=== PATIENT | female | born 1955 | race Caucasian/White ===

== ENCOUNTER → 2016-09-15 | Outpatient (CLI) | payer OTHER | LOC: CIMAGING 15:34 | PROVIDERS: ATTEND Podiatrist | DX: S92.514A Nondisplaced fracture of proximal phalanx of right lesser toe(s), initial encounter for closed fracture (principal) | CPT/HCPCS: 73630-PO ==

== ENCOUNTER → 2016-10-26 | Outpatient (CLI) | payer OTHER | LOC: CIMAGING 15:12 | PROVIDERS: ATTEND Podiatrist | DX: S92.514D Nondisplaced fracture of proximal phalanx of right lesser toe(s), subsequent encounter for fracture with routine healing (principal) | CPT/HCPCS: 73630-PO ==

== ENCOUNTER 2017-08-16 12:00 | Day surgery (SDC) | payer BC, OTHER ==
--- NOTE | 2017-08-13 09:23 | PDGENHP ---
History and Physical History and Physical: Assessment and Plan: 1. Post-menopausal bleeding Elizabeth has post menopausal bleeding likely from submucous polyps. We discussed that the endometrial biopsy, although reasurring, could biss an plyp. Therefore , it is recommended that she undergo an hysteroscopy with curretage. She is agreeable. 2. Endometrial polyp Subjective: Patient ID: Elizabeth Hardin is a 61 y.o. female who [facility] to [facility] for post menopausal bleeding. HPI Elizabeth was kindly referred by Megan Lares for post menopausal bleeding. This has occurred off and on for several months. They have changed her HRT but bleeding has recurred. She saw Megan who performed a pelvic ultrasound which was thickened and irregular which was concerning for polyps. Megan performed an endometrial biopsy was returned atrophic. Therefore she is referred for surgical consultation. She otherwise is asymptomatic. PastMedicalHistory Past Medical History: Diagnosis Date Hyperlipidemia Thyroid disease PastSurgicalHistory No past surgical history on file. CURRENT MEDICATIONS: Current Outpatient Prescriptions Medication Sig aspirin 81 mg EC tablet Take 81 mg by mouth daily. atorvaSTATin (LIPITOR) 40 mg tablet Take 40 mg by mouth daily. COMPOUNDED PRODUCT Product Name: Hormone Replacement Therapy Components/Strengths: Estrogen/Progesterone/Testosterone Directions: THYROID,PORK (ARMOUR THYROID PO) Take 75 mg by mouth daily. No current facility-administered medications for this visit. ALLERGIES: Dallergy [chlorpheniramine-phenylephrine] I have reviewed, verified and agree with the past medical, surgical, , family, social and ROS history as documented by the RN today. Objective: Vital Signs: Visit Vitals BP 126/70 Pulse 67 Temp 36.7 C (98.1 F) (Temporal Artery) Resp 12 Ht 1.626 m (5' 4") Wt 65.8 kg (145 lb) SpO2 97% BMI 24.89 kg/m Physical Exam Gen: This is an alert, well developed woman in no distress. Neuro: She moves all extremities. Psych: She is appropriate, oriented, with normal affect. Neck: No thyroid enlargement, adenopathy, or tenderness. Lungs: Clear to ascultation, no wheezes or rales. Heart: Regular rate and rhythm without obvious murmurs. Abdomen: Soft, non-tender, without guarding, rebound, or masses. Extremities: No edema or cyanosis. Pelvic: Normal external genitalia. Non-gaping introitus, vagina without discharge, adequately estrogenized, no significant prolapse. Cervix without lesions or discharge. Uterus normal sized, mobile, non-tender. Adnexa non- tender without enlargement. A pelvic ultrasound today show an endometrium measuring 1.5 x 0.8 cm suggestive of a polyp. DATA: I have reviewed the pertinent medical records. TIME/COMMUNICATION: I personally spent a total of 35 minutes. Of that 20 minutes was counseling/ coordination of patient's care. See my note above for details. Abner Castaneda MD Board Certified Female Pelvic Medicine and Reconstructive Surgery Director of Minimally Invasive Gynecologic Surgery, [facility] Surgeon in Minimally Invasive Gynecologic Surgery [facility] Surgeon in Robotic Surgery
[2017-08-16] MEDS ORDERED: BUPIVACAINE/EPI 0.5% 30 ML SDV ONE (12:04)
[2017-08-16] MEDS ORDERED: LIDOCAINE 1% 2 ML INJ ID PRN (12:08)
[2017-08-16] MEDS ORDERED: LR 1,000 ML IV ONE (12:08)
--- NOTE | 2017-08-16 12:18 | PDHPUP ---
History & Physical Update H&P update statement: This history and physical update is based on an assessment of the patient which was completed after admission or registration (within 24 hours), but prior to the surgery/procedure. H&P update: H&P reviewed & patient examined, no change in patient's condition since H&P completed
[2017-08-16] MEDS ORDERED: MIDAZOLAM 2 MG/2 ML VIAL ONE (12:36)
[2017-08-16] MEDS ORDERED: PROPOFOL 200 MG/20 ML VIAL ONE ×2 (12:39)
[2017-08-16] MEDS ORDERED: fentaNYL 100 MCG/2 ML INJ ONE (12:39)
[2017-08-16] MEDS ORDERED: LIDOCAINE 2% 5 ML SDV ONE (12:43)
[2017-08-16] MEDS ORDERED: ONDANSETRON 4 MG/2 ML VIAL IVP PRN (12:52)
[2017-08-16] MEDS ORDERED: NALOXONE HCL 0.4 MG/ML INJ IVP PRN (12:52)
[2017-08-16] MEDS ORDERED: ALBUTEROL 3 ML DEYVIAL IH PRN (12:52)
[2017-08-16] MEDS ORDERED: DEXAMETHASONE 4 MG/ML VIAL IVP PRN (12:52)
[2017-08-16] MEDS ORDERED: LR 500 ML IV PRN (12:52)
[2017-08-16] MEDS ORDERED: ACETAMINOPHEN 500 MG TAB PO PRN (12:52)
[2017-08-16] MEDS ORDERED: HYDROCODONE/APAP 5/325 TAB PO PRN (12:52)
[2017-08-16] MEDS ORDERED: fentaNYL 100 MCG/2 ML INJ IVP PRN (12:52)
--- NOTE | 2017-08-16 12:52 | PDANEPAE ---
ANE Past Medical History - Cardiovascular History Hx Hypertension: No Hx Arrhythmias: No Hx Chest Pain: No Hx Coronary Artery / Peripheral Vascular Disease: Yes Hx CHF / Valvular Disease: No Hx Palpitations: No Cardiovascular History Comment: high chol - Pulmonary History Hx COPD: No Hx Asthma/Reactive Airway Disease: No Hx Recent Upper Respiratory Infection: No Hx Oxygen in Use at Home: No Hx Sleep Apnea: No Sleep Apnea Screening Result - Last Documented: Negative Pulmonary History Comment: seasonal allergies - Neurologic History Hx Cerebrovascular Accident: No Hx Seizures: No Hx Dementia: No - Endocrine History Hx Diabetes: No Endocrine History Comment: hypothyroidism - Renal History Hx Renal Disorders: No - Liver History Hx Hepatic Disorders: No - Neurological & Psychiatric Hx Hx Neurological and Psychiatric Disorders: Yes Neurological / Psychiatric History Comment: anxiety- well controlled but anxious around upcoming surgery - Cancer History Hx Cancer: No - Congenital Disorder History Hx Congenital Disorders: No - GI History Hx Gastrointestinal Disorders: No - Other Health History Other Health History: wears glasses - Chronic Pain History Chronic Pain: No - Surgical History Prior Surgeries: na ANE Review of Systems Review of Systems: - Exercise capacity METS (RN): 4 METS ANE Patient History - Allergies Allergies/Adverse Reactions: chlorpheniramine [From Dallergy] Allergy (Verified 08/03/17 13:55) swelling in throat phenylephrine [From Dallergy] Allergy (Verified 08/03/17 13:55) swelling in throat scopolamine [From Dallergy] Allergy (Verified 08/03/17 13:55) swelling in throat - Home Medications Home Medications: ARMOUR THYROID 08/03/17 [Last Taken 08/16/17 06:00] Aspirin 81mg (*) 08/03/17 [Last Taken 08/08/17] Hormone Replacement 08/03/17 [Last Taken 08/15/17] Lipitor 08/03/17 [Last Taken 08/16/17 09:00] Vitamin D3 08/03/17 [Last Taken 08/14/17] - NPO status NPO Since - Liquids (Date): 08/16/17 NPO Since - Liquids (Time): 10:45 NPO Since - Solids (Date): 08/15/17 NPO Since - Solids (Time): 22:00 - Smoking Hx Smoking Status: Never smoked - Family Anes Hx Family Hx Anesthesia Complications: none ANE Labs/Vital Signs - Vital Signs Blood Pressure: 120/73 Heart Rate: 85 Respiratory Rate: 16 O2 Sat (%): 96 Height: 162.56 cm Weight: 65.771 kg ANE Physical Exam - Airway Neck exam: FROM Mallampati Score: Class 1 Mouth exam: normal dental/mouth exam - Pulmonary Pulmonary: no respiratory distress, no rales or rhonchi, clear to auscultation - Cardiovascular Cardiovascular: regular rate and rhythym, no murmur, rub, or gallop - ASA Status ASA Status: II ANE Anesthesia Plan Anesthesia Plan: GA with mask
[2017-08-16] MEDS ORDERED: ONDANSETRON 4 MG/2 ML VIAL ONE (12:56)
[2017-08-16] MEDS ORDERED: KETOROLAC 30 MG/1 ML SDV ONE (12:56)
--- NOTE | 2017-08-16 14:02 | GOP ---
[f rep st] OPERATIVE REPORT DATE OF OPERATION: 08/16/2017 SURGEON: Abner Castaneda MD [facility] NURSE PRACTITIONER: None. ANESTHESIA: General. PREOPERATIVE DIAGNOSIS: 1. Postmenopausal bleeding. 2. Submucous polyp. POSTOPERATIVE DIAGNOSIS: 1. Postmenopausal bleeding. 2. Submucous polyp. PROCEDURE PERFORMED: 1. Hysteroscopy. 2. Dilation and curettage. 3. Polypectomy. FINDINGS: SPECIMENS: Endometrial polyp and curettings. ESTIMATED BLOOD LOSS: Scant. DESCRIPTION OF PROCEDURE: The patient was taken to the operating room, where she was identified. Ge neral anesthesia was administered and found to be adequate. She was placed in the lithotomy position and prepared and draped in normal sterile fashion. The cervix was gently dilated. The diagnostic h ysteroscope was advanced into the endometrial cavity. A benign appearing submucous polyp was seen al beni the posterior endometrium near the lower uterine segment. The remainder of the endometrium was u nremarkable. A polyp forceps was used to attempt to grasp the polyp. A sharp curettage was performe d of the entire endometrial cavity. Hysteroscopy was repeated and the pathology appeared to have bee n removed. An adequate curettage was performed. Anesthesia was reversed. The patient was taken to PACU, awake, in stable condition. COMPLICATIONS: None. DISPOSITION: Patient stable to PACU. /[id number]/MODL
[2017-08-16 14:44] VITALS: BP 105/71
--- NOTE | 2017-08-16 15:01 | POSTANESTH ---
Post Anesthetic Evaluation Cardiovascular Status: Normal, Stable Respiratory Status: Normal, Stable Level of Consciousness/Mental Status: Can Participate in Eval Pain Control: Adequate, Prn Tx Ordered Nausea/Vomiting Control: Adequate, Prn Tx Ordered Complications Possibly Related to Anesthesia: None Noted
== END 2017-08-16 14:44 | disposition home or self-care (01) ==
LOC: FSGY 12:00
PROVIDERS: ATTEND Obstetrics & Gynecology
PROC: 0U5B8ZZ Destruction of Endometrium, Via Natural or Artificial Opening Endoscopic (ICD-10-PCS; principal; 2017-08-16 14:15)
DX: N92.4 Excessive bleeding in the premenopausal period (principal); N84.0 Polyp of corpus uteri; E78.5 Hyperlipidemia, unspecified; E07.9 Disorder of thyroid, unspecified
CPT/HCPCS: J1885; J2250; J2405; J2704; J3010

== ENCOUNTER → 2018-08-28 | Outpatient (CLI) | payer OTHER | LOC: FIMAGING 12:51 | PROVIDERS: ATTEND Nurse Practitioner Obstetrics & Gynecology | DX: Z12.31 Encounter for screening mammogram for malignant neoplasm of breast (principal); Z80.3 Family history of malignant neoplasm of breast ==